=== PATIENT | female | born 1935 | race Native Hawaiian/Other Pacific Islander ===

== ENCOUNTER 2017-01-29 09:24 | Emergency (ER) | payer OTHER ==
[~2017-01-29] VITALS: Ht 160 cm; Wt 62.6 kg
[2017-01-29 09:25] VITALS: TEMP 97.9
[2017-01-29] MEDS ORDERED: DIOVAN HCT320 MG/25 PO (09:45)
[2017-01-29] MEDS ORDERED: LEVO0.0218 PO (09:47)
[2017-01-29] MEDS ORDERED: DILT-XR240 MG OR (09:48)
[2017-01-29] MEDS ORDERED: FURO20TA67 PO (09:48)
[2017-01-29] MEDS ORDERED: ZYPREXA ZYDI5 MG OR (09:49)
[2017-01-29] MEDS ORDERED: CETI10TA PO (09:49)
[2017-01-29] MEDS ORDERED: FLUTICASONE50 MCG (09:52)
[2017-01-29] MEDS ORDERED: IPRATROPIUM BRO1 POW XX (09:52)
[2017-01-29] MEDS ORDERED: ASA LOW DOSE81 MG OR (09:53)
[2017-01-29 10:48] LABS: PLATELET COUNT 228 K/uL (152-353)
[2017-01-29 10:59] LABS: POTASSIUM 3.6 mmol/L (3.6-5.2)
[2017-01-29 13:00] VITALS: BP 150/70
== END 2017-01-29 13:25 | disposition home or self-care (01) ==
LOC: ED 09:24
PROVIDERS: Family Medicine
DX: M10.9 Gout, unspecified (principal); L08.89 Other specified local infections of the skin and subcutaneous tissue; M79.89 Other specified soft tissue disorders
CPT/HCPCS: 36415; 80053; 81000; 84550; 85027; 85379; 85651; 96372; 96374; 99284; J1885; J2930

== ENCOUNTER 2017-09-25 12:23 | Outpatient (CLI) | payer OTHER ==
[~2017-09-25 12:23] MED LIST: ASA LOW DOSE81 MG OR; CETI10TA PO; DILT-XR240 MG OR; DIOVAN HCT320 MG/25 PO; FLUTICASONE50 MCG; FURO20TA67 PO; IPRATROPIUM BRO1 POW XX; LEVO0.0218 PO; ZYPREXA ZYDI5 MG OR
== END 2017-09-25 19:38 | disposition home or self-care (01) ==
LOC: LABW 12:23
DX: R05 Cough (principal)
CPT/HCPCS: 87070; 87077; 87186; 87205

== ENCOUNTER 2017-10-15 06:06 | Inpatient (IN) | payer OTHER ==
[~2017-10-15] VITALS: Ht 160 cm; Wt 63.6 kg
[2017-10-15 06:12] VITALS: BP 136/56; TEMP 98.1
[2017-10-15 06:46] LABS: PLATELET COUNT 217 K/uL (152-353)
[2017-10-15 06:54] LABS: POTASSIUM 3.3 mmol/L (3.6-5.2)
[2017-10-15 08:12] VITALS: BP 182/95
[2017-10-15 09:15] VITALS: BP 137/61
[2017-10-15 10:15] VITALS: BP 151/99
[2017-10-15] MEDS ORDERED: CIPR500T PO (11:57)
[2017-10-15] MEDS ORDERED: FURO20TA67 PO (11:57)
[2017-10-15] MEDS ORDERED: DILTIAZEM HCL180 M2 PO (11:58)
[2017-10-15] MEDS ORDERED: ZOFRAN ODT4 MG SL (11:59)
[2017-10-15] MEDS ORDERED: PARO20TA3 PO (12:02)
[2017-10-15] MEDS ORDERED: TRAM50TA PO (12:03)
[2017-10-15] MEDS ORDERED: KLOR-CON M1010 MEQ PO (12:03)
[2017-10-15] MEDS ORDERED: METR250T19 PO (12:05)
[2017-10-15] MEDS ORDERED: VITAMIN D50000 UNT PO (12:05)
[2017-10-15] MEDS ORDERED: PROP40TA53 PO (12:07)
[2017-10-15] MEDS ORDERED: XYZAL5 MG PO (12:08)
[2017-10-15] MEDS ORDERED: MYSOLINE50 MG PO ×2 (12:10)
[2017-10-15] MEDS ORDERED: TRAV0.003 OPTH (12:11)
[2017-10-15] MEDS ORDERED: DIOVAN HC2 PO (12:11)
[2017-10-15] MEDS ORDERED: VIT E COMPLX400 UNIT PO (12:12)
[2017-10-15] MEDS ORDERED: AZEL137S NAS (12:13)
[2017-10-15] MEDS ORDERED: LEVOTHYROXIN100 MC1 PO (12:15)
[2017-10-15 16:32] VITALS: BP 184/74; TEMP 100.1; Ht 160 cm; Wt 63.6 kg
[2017-10-15 19:47] VITALS: BP 151/59; TEMP 97.8
[2017-10-16] VITALS: BP 135/58; TEMP 99.2
[2017-10-16 03:47] VITALS: BP 132/55; TEMP 98.9
[2017-10-16 06:12] LABS: POTASSIUM 3.2 mmol/L (3.6-5.2)
[2017-10-16 06:18] LABS: PLATELET COUNT 191 K/uL (152-353)
[2017-10-16 12:00] VITALS: BP 101/56; TEMP 97.9
[2017-10-16 16:00] VITALS: BP 127/50; TEMP 97.6
[2017-10-16 20:00] VITALS: BP 153/60; TEMP 98.2
[2017-10-17] VITALS: BP 126/48; TEMP 98.6
[2017-10-17 04:00] VITALS: BP 131/49; TEMP 97.7
[2017-10-17 06:15] LABS: PLATELET COUNT 184 K/uL (152-353)
[2017-10-17 06:29] LABS: POTASSIUM 3.5 mmol/L (3.6-5.2)
[2017-10-17 08:00] VITALS: BP 138/53; TEMP 98.1
[2017-10-17 12:00] VITALS: BP 145/51; TEMP 98.4
[2017-10-17 16:00] VITALS: BP 124/43; TEMP 97.9
[2017-10-17 20:22] VITALS: BP 131/46; TEMP 98.3
[2017-10-18] VITALS: BP 110/45; TEMP 98.4
[2017-10-18 04:00] VITALS: BP 129/48; TEMP 98
[2017-10-18 05:04] LABS: PLATELET COUNT 179 K/uL (152-353)
[2017-10-18 05:17] LABS: POTASSIUM 3.6 mmol/L (3.6-5.2)
[2017-10-18 07:58] VITALS: BP 143/56; TEMP 98.3
[2017-10-18 12:00] VITALS: BP 144/48; TEMP 97.9
[2017-10-18 16:00] VITALS: BP 150/61; TEMP 98.9
[2017-10-18 19:52] VITALS: BP 151/79; TEMP 98.4
[2017-10-19] VITALS: BP 132/72; BP 137/57; TEMP 97.8
[2017-10-19 03:53] VITALS: BP 151/55; TEMP 98.2
[2017-10-19 06:21] LABS: POTASSIUM 3.8 mmol/L (3.6-5.2)
[2017-10-19 07:39] VITALS: BP 116/62; TEMP 98.3
[2017-10-19] MEDS ORDERED: ONDA4TAB3 PO (11:13)
[2017-10-19] MEDS ORDERED: BENTYL10 MG PO (11:13)
[2017-10-19] MEDS ORDERED: LEVO250T2 PO (11:13)
== END 2017-10-19 12:25 | disposition home or self-care (01) | DRG 391 ==
LOC: ED 06:06 → MED/SURG 10:00
PROVIDERS: Specialist; Student in an Organized Health Care Education/Training Program
PROC: 0DB68ZX Excision of Stomach, Via Natural or Artificial Opening Endoscopic, Diagnostic (ICD-10-PCS; principal; 2017-10-16)
DX: K29.60 Other gastritis without bleeding (principal); J16.8 Pneumonia due to other specified infectious organisms; R11.2 Nausea with vomiting, unspecified; I10 Essential (primary) hypertension; J44.9 Chronic obstructive pulmonary disease, unspecified; E03.8 Other specified hypothyroidism; I27.20 Pulmonary hypertension, unspecified; K44.9 Diaphragmatic hernia without obstruction or gangrene; K25.9 Gastric ulcer, unspecified as acute or chronic, without hemorrhage or perforation; E87.6 Hypokalemia
CPT/HCPCS: 36415; 74022; 80048; 80053; 81000; 82150; 83605; 83690; 83735; 85027; 86318; 87899; 94640; 94664; 94760; 96360; 96365; 96366; 96367; 96372; 96374; 96375; 99284; A9537; J1650; J2001; J2060; J2405; J2543; J2550; J2704; J3490

== ENCOUNTER 2017-10-23 07:45 | Outpatient (CLI) | payer OTHER ==
[~2017-10-23 07:45] MED LIST changes: +AZEL137S NAS; +BENTYL10 MG PO; +CIPR500T PO; +DILTIAZEM HCL180 M2 PO; +DIOVAN HC2 PO; +KLOR-CON M1010 MEQ PO; +LEVO250T2 PO; +LEVOTHYROXIN100 MC1 PO; +METR250T19 PO; +MYSOLINE50 MG PO; +ONDA4TAB3 PO; +PARO20TA3 PO; +PROP40TA53 PO; +TRAM50TA PO; +TRAV0.003 OPTH; +VIT E COMPLX400 UNIT PO; +VITAMIN D50000 UNT PO; +XYZAL5 MG PO; +ZOFRAN ODT4 MG SL
== END 2017-10-23 19:17 | disposition home or self-care (01) ==
LOC: MRI 07:45
DX: R74.8 Abnormal levels of other serum enzymes (principal)

== ENCOUNTER 2017-10-27 15:00 | Outpatient (CLI) | payer OTHER | END 2017-10-27 23:02 | disposition home or self-care (01) | LOC: LAB 15:00 | DX: R19.7 Diarrhea, unspecified (principal) | CPT/HCPCS: 83993; 87205; 87324; 87449 ==

== ENCOUNTER 2018-08-04 05:05 | Emergency (ER) | payer OTHER ==
[~2018-08-04] VITALS: Ht 157.5 cm; Wt 57.6 kg
[2018-08-04 05:59] LABS: PLATELET COUNT 308 K/uL (152-353)
[2018-08-04 06:16] LABS: POTASSIUM 3.3 mmol/L (3.6-5.2); SODIUM 138 mmol/L (136-145)
[2018-08-04 08:46] VITALS: BP 140/58; TEMP 99.5
== END 2018-08-04 08:54 | disposition home or self-care (01) ==
LOC: ED 05:05
PROVIDERS: Internal Medicine
DX: J18.9 Pneumonia, unspecified organism (principal); D72.828 Other elevated white blood cell count; E87.6 Hypokalemia; D86.89 Sarcoidosis of other sites
CPT/HCPCS: 36415; 80053; 82550; 84484; 85027; 93005; 96365; 96366; 99284; J0456; J0696; J1885

== ENCOUNTER 2019-01-07 13:20 | Outpatient (CLI) | payer OTHER | END 2019-01-07 19:55 | disposition home or self-care (01) | LOC: LABW 13:20 | DX: J45.998 Other asthma (principal); J01.80 Other acute sinusitis; I34.1 Nonrheumatic mitral (valve) prolapse; D86.0 Sarcoidosis of lung | CPT/HCPCS: 87070; 87077; 87186; 87205 ==

== ENCOUNTER 2019-04-21 19:00 | Emergency (ER) | payer OTHER ==
[~2019-04-21] VITALS: Ht 157.5 cm; Wt 57.6 kg
[~2019-04-21 19:00] MED LIST changes: -ASA LOW DOSE81 MG OR; +ASA LOW DOSE81 MG PO; +FLUTICASON50 MCG/AC1 NAS; -FLUTICASONE50 MCG; +XYZAL ALLERGY 245 MG PO; -XYZAL5 MG PO
[2019-04-21 20:55] VITALS: BP 158/75; TEMP 98.3
[2019-04-22] MEDS ORDERED: IPRATROPIUM BRO1 POW NAS (17:54)
[2019-04-22] MEDS ORDERED: LEVO0.1T6 PO (17:55)
[2019-04-22] MEDS ORDERED: ALLO100T22 PO (17:55)
[2019-04-22] MEDS ORDERED: ACID REDUCER150 MG PO (17:56)
[2019-04-22] MEDS ORDERED: ALLER-CHLOR4 MG PO (17:57)
[2019-04-22] MEDS ORDERED: VITAMIN D32000 UNIT PO (17:58)
[2019-04-22] MEDS ORDERED: CALCIUM + D PO (17:58)
[2019-04-22] MEDS ORDERED: GABA300C2 PO (17:59)
[2019-04-22] MEDS ORDERED: BINOSTO70 MG PO (18:00)
[2019-04-22] MEDS ORDERED: BUDE1AER5 INH (18:00)
== END 2019-04-21 20:55 | disposition home or self-care (01) ==
LOC: ED 19:00
PROC: 0HQ1XZZ Repair Face Skin, External Approach (ICD-10-PCS; principal; 2019-04-21)
DX: S01.81XA Laceration without foreign body of other part of head, initial encounter (principal); M54.2 Cervicalgia; S61.511A Laceration without foreign body of right wrist, initial encounter; R51 Headache; W01.0XXA Fall on same level from slipping, tripping and stumbling without subsequent striking against object, initial encounter; Y92.89 Other specified places as the place of occurrence of the external cause
CPT/HCPCS: 90471; 90715; 99283; J7040

== ENCOUNTER 2019-04-22 16:05 | Outpatient (CLI) | payer OTHER ==
[2019-04-22] MEDS ORDERED: IPRATROPIUM BRO1 POW NAS (17:54)
[2019-04-22] MEDS ORDERED: ALLO100T22 PO (17:55)
[2019-04-22] MEDS ORDERED: LEVO0.1T6 PO (17:55)
[2019-04-22] MEDS ORDERED: ACID REDUCER150 MG PO (17:56)
[2019-04-22] MEDS ORDERED: ALLER-CHLOR4 MG PO (17:57)
[2019-04-22] MEDS ORDERED: VITAMIN D32000 UNIT PO (17:58)
[2019-04-22] MEDS ORDERED: CALCIUM + D PO (17:58)
[2019-04-22] MEDS ORDERED: GABA300C2 PO (17:59)
[2019-04-22] MEDS ORDERED: BUDE1AER5 INH (18:00)
[2019-04-22] MEDS ORDERED: BINOSTO70 MG PO (18:00)
== END 2019-04-22 16:21 | disposition short-term general hospital (02) ==
LOC: AMB 16:05
DX: R41.0 Disorientation, unspecified (principal); R26.2 Difficulty in walking, not elsewhere classified; R47.81 Slurred speech
CPT/HCPCS: A0425; A0427

== ENCOUNTER 2019-04-22 16:24 | Inpatient (IN) | payer OTHER ==
[~2019-04-22] VITALS: Ht 160 cm; Wt 59.6 kg
[2019-04-22] VITALS (7 sets, daily range): BP systolic 123–153; BP diastolic 45–62; TEMP 98–100; Ht 160 cm; Wt 59.6 kg
[2019-04-22 17:26] LABS: PLATELET COUNT 254 K/uL (152-353)
[2019-04-22 17:34] LABS: POTASSIUM 3.7 mmol/L (3.6-5.2); SODIUM 134 mmol/L (136-145)
[2019-04-22] MEDS ORDERED: IPRATROPIUM BRO1 POW NAS ×2 (17:54)
[2019-04-22] MEDS ORDERED: LEVO0.1T6 PO ×2 (17:55)
[2019-04-22] MEDS ORDERED: ALLO100T22 PO ×2 (17:55)
[2019-04-22] MEDS ORDERED: ACID REDUCER150 MG PO ×2 (17:56)
[2019-04-22] MEDS ORDERED: ALLER-CHLOR4 MG PO ×2 (17:57)
[2019-04-22 17:58] LABS: PARTIAL THROMBOPLASTIN TIME 27.1 SECONDS (24.5-33.6)
[2019-04-22] MEDS ORDERED: CALCIUM + D PO ×2 (17:58)
[2019-04-22] MEDS ORDERED: VITAMIN D32000 UNIT PO ×2 (17:58)
[2019-04-22] MEDS ORDERED: GABA300C2 PO ×2 (17:59)
[2019-04-22] MEDS ORDERED: BUDE1AER5 INH ×2 (18:00)
[2019-04-22] MEDS ORDERED: BINOSTO70 MG PO ×2 (18:00)
[2019-04-23] VITALS (9 sets, daily range): BP systolic 118–147; BP diastolic 37–60; TEMP 97.9–99.9
[2019-04-23 05:34] LABS: PLATELET COUNT 210 K/uL (152-353)
[2019-04-23 06:06] LABS: POTASSIUM 3.2 mmol/L (3.6-5.2); SODIUM 136 mmol/L (136-145)
[2019-04-24] VITALS: BP 105/41; TEMP 96.4
[2019-04-24 04:00] VITALS: BP 117/36; TEMP 97.8
[2019-04-24 05:18] LABS: PLATELET COUNT 240 K/uL (152-353)
[2019-04-24 05:30] LABS: POTASSIUM 3.3 mmol/L (3.6-5.2)
[2019-04-24 08:00] VITALS: BP 127/41; TEMP 97.7
[2019-04-24 12:00] VITALS: BP 113/39; TEMP 97.9
== END 2019-04-24 16:45 | disposition home or self-care (01) | DRG 196 ==
LOC: ED 16:32 → MED/SURG 18:30
PROVIDERS: Student in an Organized Health Care Education/Training Program; ADMIT Family Medicine
DX: D86.89 Sarcoidosis of other sites (principal); J96.01 Acute respiratory failure with hypoxia; A15.8 Other respiratory tuberculosis; F07.81 Postconcussional syndrome; R07.89 Other chest pain; J02.8 Acute pharyngitis due to other specified organisms; R53.1 Weakness; E03.8 Other specified hypothyroidism; G25.2 Other specified forms of tremor; J44.9 Chronic obstructive pulmonary disease, unspecified; E86.0 Dehydration; M10.9 Gout, unspecified; I12.9 Hypertensive chronic kidney disease with stage 1 through stage 4 chronic kidney disease, or unspecified chronic kidney disease; N18.3 Chronic kidney disease, stage 3 (moderate); G25.0 Essential tremor; G62.89 Other specified polyneuropathies; E55.9 Vitamin D deficiency, unspecified; R41.0 Disorientation, unspecified
CPT/HCPCS: 36600; 80053; 81000; 82140; 82550; 82805; 83605; 83735; 83880; 84443; 84484; 85027; 85379; 85610; 85730; 87040; 87651; 93005; 93306; 96365; 96366; 96367; 96374; 99220; 99284; A9576; G0378; J0456; J0696; J2930

== ENCOUNTER 2019-05-01 11:51 | Emergency (ER) | payer OTHER ==
[~2019-05-01] VITALS: Ht 157.5 cm; Wt 57.6 kg
[~2019-05-01 11:51] MED LIST changes: +ACID REDUCER150 MG PO; +ALLER-CHLOR4 MG PO; +ALLO100T22 PO; +BINOSTO70 MG PO; +BUDE1AER5 INH; +CALCIUM + D PO; +GABA300C2 PO; +IPRATROPIUM BRO1 POW NAS; +LEVO0.1T6 PO; +VITAMIN D32000 UNIT PO
[2019-05-01 12:36] VITALS: BP 137/66; TEMP 98.4
== END 2019-05-01 12:36 | disposition home or self-care (01) ==
LOC: ED 11:51
DX: Z48.02 Encounter for removal of sutures (principal)

== ENCOUNTER 2019-10-08 17:50 | Emergency (ER) | payer OTHER ==
[~2019-10-08] VITALS: Ht 157.5 cm; Wt 59.0 kg
[2019-10-08 19:03] LABS: PLATELET COUNT 261 K/uL (152-353)
[2019-10-08 19:22] LABS: POTASSIUM 4.9 mmol/L (3.6-5.2)
[2019-10-08 19:29] LABS: PARTIAL THROMBOPLASTIN TIME 26.3 SECONDS (24.5-33.6)
[2019-10-08 20:00] VITALS: BP 114/53; TEMP 98.8
== END 2019-10-08 20:00 | disposition home or self-care (01) ==
LOC: ED 17:50
PROVIDERS: Family Medicine
DX: G45.9 Transient cerebral ischemic attack, unspecified (principal); E87.1 Hypo-osmolality and hyponatremia
CPT/HCPCS: 36415; 80053; 85027; 85610; 85730; 99283

== ENCOUNTER 2019-10-14 15:58 | Emergency (ER) | payer OTHER ==
[~2019-10-14] VITALS: Ht 157.5 cm; Wt 59.0 kg
[2019-10-14 17:19] LABS: PLATELET COUNT 261 K/uL (152-353)
[2019-10-14 17:24] LABS: POTASSIUM 5.2 mmol/L (3.6-5.2)
[2019-10-14 19:45] VITALS: BP 124/61; TEMP 98.5
== END 2019-10-14 19:45 | disposition short-term general hospital (02) ==
LOC: ED 15:58
PROVIDERS: Emergency Medicine
DX: E87.1 Hypo-osmolality and hyponatremia (principal); K92.2 Gastrointestinal hemorrhage, unspecified
CPT/HCPCS: 80053; 81000; 82272; 85027; 96360; 96361; 96375; 99285; J3490

== ENCOUNTER 2019-11-18 10:00 | Inpatient (IN) | payer OTHER ==
[~2019-11-18] VITALS: Ht 157.5 cm; Wt 64.0 kg
[2019-11-18 15:45] VITALS: BP 175/70; TEMP 135; TEMP 98.1; Ht 157.5 cm; Wt 64.0 kg
[2019-11-18] MEDS ORDERED: GABA300C2 PO (18:12)
[2019-11-18] MEDS ORDERED: PANTOPRAZOLE 40MG TA PO (18:14)
[2019-11-18] MEDS ORDERED: IBU800 MG PO (18:14)
[2019-11-18] MEDS ORDERED: ROBAXIN-750750 MG PO (18:15)
[2019-11-18] MEDS ORDERED: MYSOLINE50 MG PO (18:23)
[2019-11-18] MEDS ORDERED: COZAAR100 MG PO (18:26)
[2019-11-18] MEDS ORDERED: BUDE1AER5 INH (18:31)
[2019-11-18 20:00] VITALS: BP 151/68; TEMP 98.4
[2019-11-19 20:00] VITALS: BP 161/68; TEMP 97.9
[2019-11-20 08:20] VITALS: BP 150/69; TEMP 98.2
[2019-11-20 20:00] VITALS: BP 140/68; TEMP 98.9
[2019-11-21 20:00] VITALS: BP 156/64; TEMP 99
[2019-11-22 15:18] VITALS: BP 177/65; TEMP 98.1
[2019-11-22] MEDS ORDERED: TRAVATAN Z0.004 % OPTH (15:36)
[2019-11-23 08:00] VITALS: BP 162/56; TEMP 98.7
[2019-11-23 20:00] VITALS: BP 139/56; TEMP 98.2
[2019-11-24 20:00] VITALS: BP 166/65; TEMP 98.1
[2019-11-25 20:00] VITALS: BP 144/53; TEMP 98.9
[2019-11-26 08:23] VITALS: BP 160/63; TEMP 98.8
[2019-11-26 20:28] VITALS: BP 163/68; TEMP 98.6
[2019-11-27 11:14] VITALS: BP 144/55; TEMP 97.9
[2019-11-27 17:18] VITALS: BP 91/55; TEMP 97.8
[2019-11-27 20:00] VITALS: BP 150/58; TEMP 97.5
[2019-11-28 09:45] VITALS: BP 163/56; TEMP 98.2
[2019-11-28 20:22] VITALS: BP 143/52; TEMP 98.3
[2019-11-29 08:44] VITALS: BP 158/59; TEMP 98.4
[2019-11-29 21:31] VITALS: BP 150/59; TEMP 98.5
[2019-11-30 20:00] VITALS: BP 143/70; TEMP 98.9
[2019-12-01 08:00] VITALS: BP 118/76; TEMP 98.4
[2019-12-01 19:29] VITALS: BP 151/77; TEMP 98.6
[2019-12-02 08:15] VITALS: BP 160/64; TEMP 97.6
[2019-12-02 20:00] VITALS: BP 177/74; TEMP 98.3
[2019-12-03 08:00] VITALS: BP 202/92; TEMP 97.7
[2019-12-03 09:00] VITALS: BP 134/72
[2019-12-03 20:00] VITALS: BP 157/65; TEMP 98.3
[2019-12-04 08:00] VITALS: BP 155/64; TEMP 98.1
[2019-12-04 20:00] VITALS: BP 148/86; TEMP 98.1
[2019-12-05 07:30] VITALS: BP 164/71; TEMP 98.6
[2019-12-05 08:00] VITALS: BP 100/49; TEMP 98.1
[2019-12-05 20:00] VITALS: BP 176/72; TEMP 98.2
[2019-12-06 08:00] VITALS: BP 141/70; TEMP 98.6
[2019-12-06 20:00] VITALS: BP 176/73; TEMP 98.3
[2019-12-07 08:00] VITALS: BP 153/65; TEMP 98.5
[2019-12-07 20:00] VITALS: BP 157/59; TEMP 99.1
[2019-12-08 08:00] VITALS: BP 175/76; TEMP 98.6
== END 2019-12-08 12:00 | disposition home health service (06) | DRG 552 ==
LOC: MED/SURG 10:00
PROVIDERS: ADMIT Internal Medicine Endocrinology, Diabetes & Metabolism
DX: M54.89 Other dorsalgia (principal); Z47.89 Encounter for other orthopedic aftercare; E03.8 Other specified hypothyroidism; I11.0 Hypertensive heart disease with heart failure; I50.9 Heart failure, unspecified; K21.9 Gastro-esophageal reflux disease without esophagitis; D86.0 Sarcoidosis of lung; M10.9 Gout, unspecified; F03.90 Unspecified dementia, unspecified severity, without behavioral disturbance, psychotic disturbance, mood disturbance, and anxiety; G62.89 Other specified polyneuropathies; Z91.81 History of falling; R26.89 Other abnormalities of gait and mobility; R53.1 Weakness
CPT/HCPCS: 87081; G0283-GP; J1885

== ENCOUNTER 2019-11-29 11:18 | Outpatient (CLI) | payer OTHER ==
[~2019-11-29 11:18] MED LIST changes: +COZAAR100 MG PO; +IBU800 MG PO; +PANTOPRAZOLE 40MG TA PO; +ROBAXIN-750750 MG PO; +TRAVATAN Z0.004 % OPTH
== END 2019-11-29 19:03 | disposition home or self-care (01) ==
LOC: CT 11:18
DX: M54.5 Low back pain (principal)

== ENCOUNTER 2020-01-06 11:31 | Outpatient (CLI) | payer OTHER ==
[2020-01-06 12:09] LABS: POTASSIUM 3.6 mmol/L (3.6-5.2)
== END 2020-01-06 19:54 | disposition home or self-care (01) ==
LOC: LAB 11:31
PROVIDERS: Internal Medicine
DX: E87.1 Hypo-osmolality and hyponatremia (principal); Z79.899 Other long term (current) drug therapy
CPT/HCPCS: 80048

== ENCOUNTER 2020-01-14 14:32 | Outpatient (CLI) | payer OTHER ==
[2020-01-14 15:01] LABS: PLATELET COUNT 269 K/uL (152-353)
== END 2020-01-14 23:56 | disposition home or self-care (01) ==
LOC: LABW 14:32
PROVIDERS: Internal Medicine
DX: N18.3 Chronic kidney disease, stage 3 (moderate) (principal); R82.998 Other abnormal findings in urine
CPT/HCPCS: 36415; 80053; 81000; 82306; 82330; 82570; 83735; 83970; 84100; 84155; 85027; 87077; 87086; 87088; 87186

== ENCOUNTER 2020-01-26 11:04 | Emergency (ER) | payer OTHER ==
[~2020-01-26] VITALS: Ht 157.5 cm; Wt 59.0 kg
[2020-01-26 11:16] VITALS: TEMP 99.2
[2020-01-26 13:01] VITALS: BP 148/60
== END 2020-01-26 13:00 | disposition home or self-care (01) ==
LOC: ED 11:04
DX: S53.492A Other sprain of left elbow, initial encounter (principal); S50.312A Abrasion of left elbow, initial encounter; W18.39XA Other fall on same level, initial encounter; Y92.89 Other specified places as the place of occurrence of the external cause
CPT/HCPCS: 99283

== ENCOUNTER 2020-02-12 10:25 | Outpatient (CLI) | payer OTHER ==
[2020-02-12 10:49] LABS: POTASSIUM 4.6 mmol/L (3.6-5.2)
== END 2020-02-12 21:31 | disposition home or self-care (01) ==
LOC: LAB 10:25
PROVIDERS: Internal Medicine
DX: I11.0 Hypertensive heart disease with heart failure (principal); I50.20 Unspecified systolic (congestive) heart failure
CPT/HCPCS: 80048

== ENCOUNTER 2020-03-11 14:28 | Outpatient (CLI) | payer OTHER ==
[2020-03-11 14:53] LABS: POTASSIUM 3.6 mmol/L (3.6-5.2)
== END 2020-03-11 19:47 | disposition home or self-care (01) ==
LOC: LAB 14:28
PROVIDERS: Internal Medicine
DX: I11.0 Hypertensive heart disease with heart failure (principal); I50.20 Unspecified systolic (congestive) heart failure
CPT/HCPCS: 80048

== ENCOUNTER 2020-03-26 10:57 | Outpatient (CLI) | payer OTHER ==
[2020-03-26 12:08] LABS: PLATELET COUNT 237 K/uL (152-353)
[2020-03-26 12:45] LABS: POTASSIUM 3.9 mmol/L (3.6-5.2)
== END 2020-03-26 21:09 | disposition home or self-care (01) ==
LOC: LABW 10:57
PROVIDERS: Physical Medicine & Rehabilitation Pain Medicine
DX: Z01.818 Encounter for other preprocedural examination (principal); Z22.322 Carrier or suspected carrier of Methicillin resistant Staphylococcus aureus; R82.998 Other abnormal findings in urine; I50.9 Heart failure, unspecified
CPT/HCPCS: 36415; 80048; 81000; 85027; 85610; 87070; 87088

== ENCOUNTER 2020-05-05 11:08 | Outpatient (CLI) | payer OTHER ==
[2020-05-05 11:32] LABS: PLATELET COUNT 247 K/uL (152-353)
[2020-05-05 12:42] LABS: POTASSIUM 4.2 mmol/L (3.6-5.2)
== END 2020-05-05 19:35 | disposition home or self-care (01) ==
LOC: LABW 11:08
PROVIDERS: Internal Medicine
DX: I10 Essential (primary) hypertension (principal); K50.90 Crohn's disease, unspecified, without complications; Z79.899 Other long term (current) drug therapy
CPT/HCPCS: 36415; 80053; 80061; 83036; 84443; 85027

== ENCOUNTER 2020-05-26 15:06 | Emergency (ER) | payer OTHER ==
[~2020-05-26] VITALS: Ht 157.5 cm; Wt 46.7 kg
[2020-05-26 16:45] LABS: PLATELET COUNT 281 K/uL (152-353)
[2020-05-26 16:54] LABS: POTASSIUM 3.9 mmol/L (3.6-5.2)
[2020-05-26 20:55] VITALS: BP 136/49; TEMP 98.7
== END 2020-05-26 20:55 | disposition home or self-care (01) ==
LOC: ED 15:06
PROVIDERS: Family Medicine
DX: S32.018A Other fracture of first lumbar vertebra, initial encounter for closed fracture (principal); M54.5 Low back pain; Z98.890 Other specified postprocedural states; W18.39XA Other fall on same level, initial encounter; Y92.89 Other specified places as the place of occurrence of the external cause
CPT/HCPCS: 80053; 81000; 85027; 99283

== ENCOUNTER 2020-06-05 16:48 | Outpatient (CLI) | payer OTHER ==
[2020-06-05 17:25] LABS: PLATELET COUNT 274 K/uL (152-353)
[2020-06-05 17:44] LABS: POTASSIUM 4.1 mmol/L (3.6-5.2)
== END 2020-06-06 00:01 | disposition home or self-care (01) ==
LOC: LABW 16:48
PROVIDERS: Nurse Practitioner
DX: N18.4 Chronic kidney disease, stage 4 (severe) (principal); G25.0 Essential tremor; Z51.81 Encounter for therapeutic drug level monitoring; Z87.820 Personal history of traumatic brain injury
CPT/HCPCS: 36415; 80053; 81000; 82043; 82306; 82330; 82570; 83735; 83970; 84100; 85027

== ENCOUNTER 2020-09-01 12:57 | Outpatient (CLI) | payer OTHER ==
[2020-09-01 13:49] LABS: PLATELET COUNT 242 K/uL (152-353)
[2020-09-01 14:39] LABS: POTASSIUM 4.2 mmol/L (3.6-5.2)
== END 2020-09-01 21:35 | disposition home or self-care (01) ==
LOC: LAB 12:57 → RAD 12:57 → LABW 12:57
PROVIDERS: ATTEND Internal Medicine
DX: N18.4 Chronic kidney disease, stage 4 (severe) (principal); R10.9 Unspecified abdominal pain
CPT/HCPCS: 36415; 80053; 81000; 82150; 82306; 82330; 82570; 83690; 83735; 83970; 84100; 84155; 85027

== ENCOUNTER 2020-09-04 10:06 | Outpatient (CLI) | payer OTHER | END 2020-09-04 23:00 | disposition home or self-care (01) | LOC: CT 10:06 | PROVIDERS: ATTEND Internal Medicine | DX: R10.84 Generalized abdominal pain (principal) ==

== ENCOUNTER 2020-09-10 17:07 | Emergency (ER) | payer OTHER ==
[~2020-09-10] VITALS: Ht 157.5 cm; Wt 59.0 kg
[2020-09-10 17:31] LABS: PLATELET COUNT 252 K/uL (152-353)
[2020-09-10 17:41] LABS: POTASSIUM 4.4 mmol/L (3.6-5.2); SODIUM 141 mmol/L (136-145)
[2020-09-10 17:45] LABS: PARTIAL THROMBOPLASTIN TIME 22.5 SECONDS (24.5-33.6)
[2020-09-10 19:19] VITALS: BP 144/65; TEMP 97
== END 2020-09-10 19:19 ==
LOC: ED 17:07
PROVIDERS: Hospitalist
DX: R07.89 Other chest pain (principal); R09.1 Pleurisy; Z20.828 Contact with and (suspected) exposure to other viral communicable diseases; R06.02 Shortness of breath
CPT/HCPCS: 36415; 80053; 82550; 83880; 84484; 85027; 85379; 85610; 85730; 87502; 87635; 87651; 93005; 96374; 96375; 99284; J1100; J1885; J2405; U0003

== ENCOUNTER 2020-11-18 09:57 | Outpatient (CLI) | payer OTHER ==
[2020-11-18 10:22] LABS: PLATELET COUNT 322 K/uL (152-353)
== END 2020-11-18 21:31 | disposition home or self-care (01) ==
LOC: LABW 09:57 → CT 10:00 → LABW 21:31
PROVIDERS: ATTEND Nurse Practitioner
DX: R10.84 Generalized abdominal pain (principal); R10.32 Left lower quadrant pain
CPT/HCPCS: 36415; 82565; 84520; 85027

== ENCOUNTER 2021-01-24 23:51 | Observation (INO) | payer OTHER ==
[2021-02-07 05:53] LABS: PARTIAL THROMBOPLASTIN TIME 24.7 SECONDS (24.5-33.6)
[2021-02-07 05:54] LABS: PLATELET COUNT 259 K/uL (152-353)
[2021-02-07 05:55] LABS: POTASSIUM 4.5 mmol/L (3.6-5.2); SODIUM 138 mmol/L (136-145)
== END 2021-01-25 18:25 | disposition home or self-care (01) ==
LOC: ED 23:51 → MED/SURG 01-25 02:10
PROVIDERS: ADMIT Hospitalist; ATTEND Internal Medicine Endocrinology, Diabetes & Metabolism
DX: R07.89 Other chest pain (principal); I10 Essential (primary) hypertension; D86.89 Sarcoidosis of other sites; E03.8 Other specified hypothyroidism; K21.9 Gastro-esophageal reflux disease without esophagitis
CPT/HCPCS: 36415; 80053; 82550; 82553; 83880; 84484; 85027; 85379; 85610; 85730; 87635; 93005; 96372; 96374; 96375; 99220; 99284; G0378; U0003

== ENCOUNTER 2021-02-23 10:30 | Outpatient (CLI) | payer OTHER ==
[2021-02-23 11:08] LABS: PLATELET COUNT 322 K/uL (152-353)
[2021-02-23 11:09] LABS: POTASSIUM 4.6 mmol/L (3.6-5.2)
== END 2021-02-23 21:35 | disposition home or self-care (01) ==
LOC: LABW 10:30
PROVIDERS: ATTEND Nurse Practitioner
DX: N18.4 Chronic kidney disease, stage 4 (severe) (principal)
CPT/HCPCS: 36415; 80053; 81000; 82306; 82330; 82570; 83735; 83970; 84100; 84155; 85007; 85027

== ENCOUNTER 2021-02-26 16:32 | Outpatient (CLI) | payer OTHER ==
[2021-02-26 19:50] LABS: POTASSIUM 4.6 mmol/L (3.6-5.2)
[2021-02-26 20:22] LABS: PLATELET COUNT 335 K/uL (152-353)
== END 2021-02-26 19:11 | disposition home or self-care (01) ==
LOC: LABW 16:32
PROVIDERS: ATTEND Psychiatry & Neurology Neurology
DX: G25.0 Essential tremor (principal); Z51.81 Encounter for therapeutic drug level monitoring; R79.89 Other specified abnormal findings of blood chemistry; R40.4 Transient alteration of awareness
CPT/HCPCS: 80053; 82306; 85007; 85027

== ENCOUNTER 2021-03-27 07:30 | Emergency (ER) | payer OTHER ==
[~2021-03-27] VITALS: Ht 157.5 cm; Wt 59.0 kg
[2021-03-27 09:08] LABS: PLATELET COUNT 382 K/uL (152-353)
[2021-03-27 09:15] LABS: POTASSIUM 4.3 mmol/L (3.6-5.2); SODIUM 134 mmol/L (136-145)
[2021-03-27 12:10] VITALS: BP 147/59; TEMP 99.1
== END 2021-03-27 12:18 | disposition home or self-care (01) ==
LOC: ED 07:57
PROVIDERS: Emergency Medicine
DX: S22.088D Other fracture of T11-T12 vertebra, subsequent encounter for fracture with routine healing (principal); S32.018D Other fracture of first lumbar vertebra, subsequent encounter for fracture with routine healing; S32.038D Other fracture of third lumbar vertebra, subsequent encounter for fracture with routine healing; S22.41XD Multiple fractures of ribs, right side, subsequent encounter for fracture with routine healing; J18.9 Pneumonia, unspecified organism; Z20.822 Contact with and (suspected) exposure to COVID-19; R41.82 Altered mental status, unspecified; X58.XXXD Exposure to other specified factors, subsequent encounter
CPT/HCPCS: 80053; 84484; 85027; 87635; 93005; 96372; 99283; J0696; J1885; U0003

== ENCOUNTER 2021-04-09 10:30 | Outpatient (CLI) | payer OTHER ==
[2021-04-09 11:02] LABS: PLATELET COUNT 345 K/uL (152-353)
[2021-04-09 11:37] LABS: POTASSIUM 4.6 mmol/L (3.6-5.2)
== END 2021-04-09 19:31 | disposition home or self-care (01) ==
LOC: LABW 10:30
PROVIDERS: ATTEND Physical Medicine & Rehabilitation Pain Medicine
DX: Z01.818 Encounter for other preprocedural examination (principal); R79.1 Abnormal coagulation profile
CPT/HCPCS: 36415; 80048; 81000; 85027; 85610; 87070

== ENCOUNTER 2021-04-16 12:24 | Outpatient (CLI) | payer OTHER ==
[2021-04-16 12:51] LABS: PLATELET COUNT 427 K/uL (152-353)
[2021-04-16 13:02] LABS: POTASSIUM 4.7 mmol/L (3.6-5.2)
== END 2021-04-16 19:05 | disposition home or self-care (01) ==
LOC: LABW 12:24
PROVIDERS: ATTEND Internal Medicine
DX: N18.4 Chronic kidney disease, stage 4 (severe) (principal)
CPT/HCPCS: 36415; 80053; 81000; 82306; 82330; 82570; 83735; 83970; 84100; 84155; 85027

== ENCOUNTER 2021-05-06 05:35 | Inpatient (IN) | payer OTHER ==
[~2021-05-06] VITALS: Ht 149.9 cm; Wt 60.8 kg
[2021-05-06] VITALS (8 sets, daily range): BP systolic 118–146; BP diastolic 46–57; TEMP 97.5–97.6; Ht 149.9 cm; Wt 60.8 kg
[2021-05-06 06:09] LABS: PLATELET COUNT 351 K/uL (152-353)
[2021-05-06 06:16] LABS: POTASSIUM 4.4 mmol/L (3.6-5.2); SODIUM 135 mmol/L (136-145)
[2021-05-07] VITALS (7 sets, daily range): BP systolic 94–156; BP diastolic 46–58; TEMP 97.2–98.4
[2021-05-07 05:03] LABS: PLATELET COUNT 287 K/uL (152-353)
[2021-05-07 05:05] LABS: POTASSIUM 4.3 mmol/L (3.6-5.2)
[2021-05-08] VITALS: BP 134/56; TEMP 98.2
[2021-05-08 04:00] VITALS: BP 147/50; TEMP 98.3
[2021-05-08 04:12] LABS: PLATELET COUNT 329 K/uL (152-353)
[2021-05-08 04:38] LABS: POTASSIUM 4.1 mmol/L (3.6-5.2)
[2021-05-08] MEDS ORDERED: POT CHLORIDE10 MEQ PO (04:48)
[2021-05-08] MEDS ORDERED: PRIMIDONE50 M1 PO (04:50)
[2021-05-08] MEDS ORDERED: PROPRANOLOL40 MG PO (04:52)
[2021-05-08] MEDS ORDERED: CALCIUM600 M1 PO (04:54)
[2021-05-08] MEDS ORDERED: LEVOCETIRIZINE D5 MG PO (04:57)
[2021-05-08] MEDS ORDERED: TRAMADOL HYDROC50 MG PO (04:58)
[2021-05-08] MEDS ORDERED: MIRALAX17 GM PO (05:03)
[2021-05-08] MEDS ORDERED: DICYCLOMINE HYD10 MG PO (05:04)
[2021-05-08] MEDS ORDERED: MYRBETRIQ25 MG PO (05:05)
[2021-05-08] MEDS ORDERED: BENEFIBE2 PO (05:06)
[2021-05-08 08:30] VITALS: BP 141/62; TEMP 98.1
[2021-05-08 12:00] VITALS: BP 167/60; TEMP 98.2
[2021-05-08 16:00] VITALS: BP 112/63; TEMP 97.6
[2021-05-08 20:00] VITALS: BP 147/51; TEMP 98.7
[2021-05-09 00:16] VITALS: BP 184/87; TEMP 98.3
[2021-05-09 04:25] VITALS: TEMP 99.3
[2021-05-09 08:00] VITALS: BP 140/71; TEMP 98.4
[2021-05-09 09:22] LABS: POTASSIUM 4.1 mmol/L (3.6-5.2)
[2021-05-09 09:25] LABS: PLATELET COUNT 416 K/uL (152-353)
[2021-05-09 12:00] VITALS: BP 102/69; TEMP 98.1
[2021-05-09 20:00] VITALS: BP 129/48; TEMP 98.7
[2021-05-10] VITALS: BP 124/90; TEMP 100.1
[2021-05-10 04:00] VITALS: BP 125/94; TEMP 99
[2021-05-10 05:18] LABS: PLATELET COUNT 389 K/uL (152-353)
[2021-05-10 05:24] LABS: POTASSIUM 3.3 mmol/L (3.6-5.2)
[2021-05-10 08:00] VITALS: BP 172/110; TEMP 98.8
[2021-05-10 12:00] VITALS: BP 139/61; TEMP 98.4
[2021-05-10 16:00] VITALS: BP 145/55; TEMP 98.5
[2021-05-10 20:13] VITALS: BP 142/53; TEMP 97.3
[2021-05-11] VITALS: BP 157/65; TEMP 98.3
[2021-05-11 05:33] LABS: PLATELET COUNT 486 K/uL (152-353)
[2021-05-11 05:41] LABS: POTASSIUM 3.2 mmol/L (3.6-5.2)
[2021-05-11 08:00] VITALS: BP 145/63; TEMP 97
[2021-05-11 12:00] VITALS: BP 175/71; TEMP 99.5
[2021-05-11 16:00] VITALS: BP 154/67; TEMP 98.6
[2021-05-11 20:23] VITALS: BP 185/72; TEMP 98.4
[2021-05-12 00:19] VITALS: TEMP 99
[2021-05-12 04:27] VITALS: TEMP 98.3
[2021-05-12 05:30] LABS: PLATELET COUNT 500 K/uL (152-353)
[2021-05-12 05:47] LABS: POTASSIUM 2.9 mmol/L (3.6-5.2)
[2021-05-12 12:00] VITALS: TEMP 99.1
[2021-05-12 16:00] VITALS: TEMP 98.8
[2021-05-12 20:00] VITALS: BP 130/53; TEMP 98.3
[2021-05-13 00:18] VITALS: BP 149/55; TEMP 96.6
[2021-05-13 04:00] VITALS: BP 139/58; TEMP 97.5
[2021-05-13 07:59] LABS: PLATELET COUNT 462 K/uL (152-353)
[2021-05-13 08:17] LABS: POTASSIUM 3.2 mmol/L (3.6-5.2)
[2021-05-13 08:30] VITALS: TEMP 97.9
[2021-05-13 12:00] VITALS: BP 96/56; TEMP 98.1
[2021-05-13 16:00] VITALS: TEMP 98.7
[2021-05-13 20:00] VITALS: BP 161/58; TEMP 98.7
[2021-05-14 04:00] VITALS: BP 140/53; TEMP 98.3
[2021-05-14 04:32] LABS: POTASSIUM 3.3 mmol/L (3.6-5.2)
[2021-05-14 05:07] LABS: PLATELET COUNT 445 K/uL (152-353)
[2021-05-14 08:00] VITALS: BP 113/74; TEMP 98
[2021-05-14 12:00] VITALS: BP 133/42; TEMP 98
[2021-05-14 16:00] VITALS: BP 133/48; TEMP 97.5
[2021-05-14 20:27] VITALS: BP 135/39; TEMP 97.1
== END 2021-05-14 22:29 | disposition expired | DRG 193 ==
LOC: ED 05:35 → MED/SURG 08:15
PROVIDERS: Family Medicine; Internal Medicine Endocrinology, Diabetes & Metabolism; ADMIT Internal Medicine; ATTEND Internal Medicine
DX: J16.8 Pneumonia due to other specified infectious organisms (principal); G92.8 Other toxic encephalopathy; D86.0 Sarcoidosis of lung; G89.4 Chronic pain syndrome; I11.0 Hypertensive heart disease with heart failure; I50.9 Heart failure, unspecified; E03.8 Other specified hypothyroidism; F32.89 Other specified depressive episodes; N32.81 Overactive bladder; J30.2 Other seasonal allergic rhinitis; D50.8 Other iron deficiency anemias; I48.91 Unspecified atrial fibrillation
CPT/HCPCS: 36415; 80048; 80053; 81000; 82550; 82607; 82728; 82746; 83540; 83735; 83880; 84484; 85027; 87635; 93005; 94640; 94664; 94760; 96365; 99284; J0360; J0456; J0696; J1940; J2060; J2270; J2405; J2543; J2916; J3480; J3490; U0003